=== PATIENT | male | born 1990 | race Hispanic/Latino ===

== ENCOUNTER 2017-10-26 17:48 | Emergency (ER) | payer BC ==
[2017-10-26 17:59] VITALS: RESP 18; O2SAT 100
--- NOTE | 2017-10-26 18:50 | ED PDOC ---
HPI: CCC, URI, Sore Throat Time Seen by Provider: 10/26/17 18:41 Chief Complaint (Nursing): Shortness Of Breath History Per: Patient Onset/Duration Of Symptoms: Days (2-3) Current Symptoms Are (Timing): Still Present Location Of Pain: Throat Associated Symptoms: Fever, Sore Throat, Cough Severity: Moderate Additional Complaint(s): Referred from [facility] for sore throat, nasal congestion and cough productive white sputum x 2-3 days. While reciving nebulizer tx at [facility] felt faint and lightheaded. Past Medical History Vital Signs: Last Vital Signs Temp 99.0 F 10/26/17 20:36 Pulse 84 10/26/17 20:36 Resp 18 10/26/17 20:36 BP 130/84 10/26/17 20:36 Pulse Ox 100 10/27/17 03:44 - Medical History PMH: No Chronic Diseases - Family History Family History: States: Unknown Family Hx - Home Medications Home Medications: Ambulatory Orders Medication Instructions Recorded Benzonatate [Tessalon Perle] 100 mg PO TID #20 capsule 10/26/17 Fluticasone Nasal [Flonase] 1 spr NS QPM #1 spr 10/26/17 predniSONE [predniSONE Tab] 40 mg PO DAILY 3 Days tab 10/26/17 - Allergies Allergies/Adverse Reactions: Allergies Allergy/AdvReac Type Severity Reaction Status Date / Time Sulfa (Sulfonamide Allergy RASH Verified 10/26/17 17:56 Antibiotics) Review of Systems ROS Statement: Except As Marked, All Systems Reviewed And Found Negative Constitutional: Positive for: Fever ENT: Positive for: Nose Congestion, Throat Pain Respiratory: Positive for: Cough Physical Exam - Reviewed Nursing Documentation Reviewed: Yes Vital Signs Reviewed: Yes - Physical Exam Appears: Positive for: Non-toxic, No Acute Distress Head Exam: Positive for: ATRAUMATIC, NORMAL INSPECTION, NORMOCEPHALIC Skin: Positive for: Normal Color, Warm, DRY Eye Exam: Positive for: EOMI, Normal appearance, PERRL ENT: Positive for: Pharyngeal Erythema. Negative for: Sinus Pain/Drainage Neck: Positive for: Normal, Painless ROM Cardiovascular/Chest: Positive for: Regular Rate, Rhythm Respiratory: Positive for: Rhonchi. Negative for: Wheezing, Respiratory Distress Gastrointestinal/Abdominal: Positive for: Normal Exam, Soft Back: Positive for: Normal Inspection Extremity: Positive for: Normal ROM Neurologic/Psych: Positive for: Alert, Oriented - Laboratory Results Result Diagrams: 10/26/17 19:05 10/26/17 19:05 - ECG O2 Sat by Pulse Oximetry: 100 Disposition - Clinical Impression Clinical Impression: Upper respiratory infection - Patient ED Disposition Is Patient to be Admitted: Transfer of Care - Disposition Disposition: Transfer of Care Disposition Time: 19:00 Condition: STABLE Prescriptions: Benzonatate [Tessalon Perle] 100 mg PO TID #20 capsule Fluticasone Nasal [Flonase] 1 spr NS QPM #1 spr predniSONE [predniSONE Tab] 40 mg PO DAILY 3 Days tab Instructions: Viral Upper Respiratory Infection, Adult (DC) Forms: [employer] (Arabic) Patient Signed Over To: Chao Falk
[2017-10-26 19:16] LABS: BASO % 0.3 % (0.0-2.0); EOS # 0.1 K/uL (0.0-0.7); EOS % 0.6 % (0.0-4.0); HEMOGLOBIN 16.3 g/dL (12.0-18.0); MEAN CELL VOLUME 87.3 fl (80.0-94.0); MEAN CORPUSCULAR HEMOGLOBIN 30.3 pg (27.0-31.0); MEAN CORPUSCULAR HGB CONC 34.7 g/dL (33.0-37.0); MEAN PLATELET VOLUME 9.8 fl (7.2-11.7); MONO # 0.7 K/uL (0.0-0.8); MONO % 5.5 % (0.0-10.0); NEUT # 10.8 K/uL (1.8-7.0); NEUT % 85.6 % (50.0-75.0); PLATELET COUNT 183 K/uL (130-400); RBC 5.36 Mil/uL (4.40-5.90); RED CELL DISTRIBUTION WIDTH 12.2 % (11.5-14.5); WHITE BLOOD COUNT 12.7 K/uL (4.8-10.8)
[2017-10-26 19:29] LABS: ALB/GLOB RATIO 1.2 (1.0-2.1); ALBUMIN 4.6 g/dL (3.5-5.0); ALT/SGPT 42 U/L (21-72); AST/SGOT 34 U/L (17-59); BLOOD UREA NITROGEN 17 mg/dl (9-20); CALCIUM 9.6 mg/dL (8.4-10.2); GFR AFRICAN-AMERICAN > 60; GFR NON-AFRICAN AMERICAN > 60
--- NOTE | 2017-10-26 20:12 | ED PDOC ---
- Laboratory Results Result Diagrams: 10/26/17 19:05 10/26/17 19:05 - ECG O2 Sat by Pulse Oximetry: 100 Medical Decision Making Medical Decision Makin:00 Patient endorsed to me by Dr. Valdez pending reevaluation. 20:10 Not concerned for bacterial infection based on findings and history. Patient states cough is worse when lying down. No fevers. Likely URI with postnasal drip. Upon provider evaluation patient is medically stable, and requires no further treatment in the ED at this time. Patient will be discharged with Rx for Flonase and Benzonatate. Counseling was provided and all questions were answered regarding diagnosis and need for follow up with PMD. There is agreement to discharge plan. Return if symptoms persist or worsen. Scribe Attestation: Documented by Henrry Menon, acting as a scribe for Chao Falk MD. Provider Scribe Attestation: All medical record entries made by the Scribe were at my direction and personally dictated by me. I have reviewed the chart and agree that the record accurately reflects my personal performance of the history, physical exam, medical decision making, and the department course for this patient. I have also personally directed, reviewed, and agree with the discharge instructions and disposition. Disposition Counseled Patient/Family Regarding: Studies Performed, Diagnosis, Need For Followup, Rx Given - Clinical Impression Clinical Impression: Upper respiratory infection - POA Present On Arrival: None - Disposition Disposition: Routine/Home Disposition Time: 20:10 Condition: STABLE Prescriptions: Benzonatate [Tessalon Perle] 100 mg PO TID #20 capsule Fluticasone Nasal [Flonase] 1 spr NS QPM #1 spr predniSONE [predniSONE Tab] 40 mg PO DAILY 3 Days tab Instructions: Viral Upper Respiratory Infection, Adult (DC) Forms: [employer] (Faroese)
[2017-10-26 20:42] VITALS: BP 130/84; PULSE 84; TEMP 99
[2017-10-26 20:50] LABS: BANDS 1 % (0-2); EOSINOPHIL 2 % (0-7); LYMPHOCYTE 4 % (20-50); MONOCYTE 5 % (0-10); NEUTROPHIL 81 % (42-75); REACTIVE LYMPHOCYTES 7 % (0-0); TOTAL CELLS COUNTED 100
[2017-10-26 20:51] LABS: PLATELET ESTIMATE NORMAL (NORMAL)
--- NOTE | 2017-10-27 08:46 | RAD ---
HISTORY: cough COMPARISON: No prior. TECHNIQUE: Chest PA and lateral FINDINGS: LUNGS: No active pulmonary disease. PLEURA: No significant pleural effusion identified. No pneumothorax apparent. CARDIOVASCULAR: Normal. OSSEOUS STRUCTURES: Clavicle compression plate and multiple compression screws status post for old healed fracture. VISUALIZED UPPER ABDOMEN: Normal. OTHER FINDINGS: None. IMPRESSION: No acute cardiopulmonary disease appreciated.
== END 2017-10-26 20:42 | disposition home or self-care (01) ==
LOC: H.ER 17:48
DX: J06.9 Acute upper respiratory infection, unspecified (principal)